=== PATIENT | female | born 1995 | race Asian ===

== ENCOUNTER 2022-12-22 03:27 | Emergency (ER) | payer OTHER ==
[~2022-12-22] VITALS: Ht 162.6 cm; Wt 80.4 kg
[2022-12-22] MEDS ORDERED: NAPR500T6 PO (03:38)
[2022-12-22] MEDS ORDERED: SERT-141 PO (03:38)
[2022-12-22] MEDS ORDERED: SYNT25TA PO (03:38)
[2022-12-22] MEDS ORDERED: AZIT-12 PO (03:38)
[2022-12-22] MEDS ORDERED: D 50CAP2 PO (03:40)
[2022-12-22] MEDS ORDERED: NORGTAB2 PO (03:40)
[2022-12-22 04:29] LABS: BASO % 0.3 % (0.0-1.0); EOS # 0.3 10^3/uL (0.0-0.5); EOS % 3.7 % (0.0-3.0); HEMATOCRIT 43.3 % (36.0-47.0); HEMOGLOBIN 13.9 g/dl (12.0-15.5); LYMPH # 1.1 10^3/uL (1.5-5.0); LYMPH % 11.6 % (24.0-44.0); MEAN CORPUSCULAR HEMOGLOBIN 26.5 pg (27.0-33.0); MEAN CORPUSCULAR HGB CONC 32.1 g/dl (32.0-36.5); MEAN CORPUSCULAR VOLUME 82.6 fl (80.0-96.0); MONO % 10.6 % (2.0-8.0); NEUTROPHILS # 6.6 10^3/uL (1.5-8.5); NEUTROPHILS % 72.8 % (36.0-66.0); PLATELET COUNT, AUTOMATED 242 10^3/uL (150-450); RED BLOOD COUNT 5.24 10^6/uL (4.00-5.40); WHITE BLOOD COUNT 9.1 10^3/uL (4.0-10.0)
[2022-12-22] MEDS ORDERED: NS 1,000 ML IV ONE (04:30)
[2022-12-22 04:38] LABS: LIPASE 32 U/L (12-53)
[2022-12-22 04:40] LABS: ALBUMIN 3.6 G/DL (3.2-5.2); ALKALINE PHOSPHATASE 54 U/L (46-116); ALT/SGPT 83 U/L (7.0-40); AST/SGOT 52 U/L (<34); BILIRUBIN,DIRECT 0.1 MG/DL (<0.4); BILIRUBIN,TOTAL 0.4 MG/DL (0.3-1.2); BLOOD UREA NITROGEN 10 MG/DL (9-23); CALCIUM LEVEL 7.9 MG/DL (8.5-10.1); CARBON DIOXIDE LEVEL 20 MMOL/L (20-31); CHLORIDE LEVEL 108 MMOL/L (98-107); CREATININE FOR GFR 0.72 MG/DL (0.55-1.30); GLOMERULAR FILTRATION RATE > 60.0 (>60); GLUCOSE, FASTING 91 MG/DL (60-100); POTASSIUM SERUM 3.3 MMOL/L (3.5-5.1); SODIUM LEVEL 136 MMOL/L (136-145); TOTAL PROTEIN 7.8 G/DL (5.7-8.2)
[2022-12-22 04:47] LABS: HCG, SERUM QUALITATIVE NEGATIVE (NEGATIVE)
[2022-12-22 06:19] VITALS: BP 126/63
[2022-12-22] MEDS ORDERED: ONDA4TAB6 PO (07:15)
[2022-12-22] MEDS ORDERED: LOMO2.5T PO (07:15)
[2022-12-22] MEDS ORDERED: ONDANSETRON 4MG 2ML VIAL IV ONE (07:15)
[2022-12-22] MEDS ORDERED: LOMOTIL 2.5MG/0.025MG TABLET PO ONE (07:15)
== END 2022-12-22 07:30 | disposition home or self-care (01) ==
LOC: M ED 03:27
DX: A08.0 Rotaviral enteritis (principal); E03.9 Hypothyroidism, unspecified
CPT/HCPCS: 80048; 80076; 81001; 83690; 84703; 85025; 87086; 87507; 93041; 96374; 99284; J2405

== ENCOUNTER 2023-01-25 23:53 | Emergency (ER) | payer OTHER ==
[~2023-01-25] VITALS: Ht 157.5 cm; Wt 83.7 kg
[~2023-01-25 23:53] MED LIST: AZIT-12 PO; D 50CAP2 PO; LOMO2.5T PO; NAPR500T6 PO; NORGTAB2 PO; ONDA4TAB6 PO; SERT-141 PO; SYNT25TA PO
[2023-01-26] MEDS ORDERED: IBUPROFEN 800 MG TAB PO ONE (01:00)
[2023-01-26 02:26] VITALS: BP 111/60
== END 2023-01-26 02:29 | disposition home or self-care (01) ==
LOC: M ED 23:53
DX: J02.0 Streptococcal pharyngitis (principal); R50.9 Fever, unspecified; R51.9 Headache, unspecified

== ENCOUNTER → 2023-05-12 | Outpatient (CLI) | payer OTHER ==
[2023-05-12 15:24] LABS: HEMATOCRIT 40.4 % (36.0-47.0); MEAN CORPUSCULAR HEMOGLOBIN 27.1 pg (27.0-33.0); MEAN CORPUSCULAR HGB CONC 32.2 g/dl (32.0-36.5); MEAN CORPUSCULAR VOLUME 84.3 fl (80.0-96.0); PLATELET COUNT, AUTOMATED 294 10^3/uL (150-450); RED BLOOD COUNT 4.79 10^6/uL (4.00-5.40); WHITE BLOOD COUNT 8.4 10^3/uL (4.0-10.0)
[2023-05-12 15:58] LABS: FREE T4 0.98 NG/DL (0.89-1.76)
[2023-05-12 15:59] LABS: THYROID STIMULATING HORMONE 1.327 uIU/ML (0.55-4.78)
[2023-05-12 16:39] LABS: HIV 1&2 SCREEN NEGATIVE (NEGATIVE)
[2023-05-12 16:47] LABS: HEPATITIS C VIRUS ABY INDEX 0.13 INDEX (<0.8)
[2023-05-12 16:51] LABS: GC DNA AMPLIFICATION NEGATIVE (NEGATIVE)
== END ==
LOC: M PLALAB 11:35
PROVIDERS: ATTEND Specialist
DX: Z34.81 Encounter for supervision of other normal pregnancy, first trimester (principal)

== ENCOUNTER → 2023-05-16 | Outpatient (REF) | payer OTHER | LOC: M PLALAB 14:43 | PROVIDERS: ATTEND Specialist | DX: Z53.9 Procedure and treatment not carried out, unspecified reason (principal); Z34.81 Encounter for supervision of other normal pregnancy, first trimester ==

== ENCOUNTER → 2023-07-06 | Outpatient (REF) | payer OTHER | LOC: M LAB REF 17:05 | PROVIDERS: ATTEND Family Medicine Addiction Medicine | DX: E03.9 Hypothyroidism, unspecified (principal) ==

== ENCOUNTER → 2023-07-13 | Outpatient (CLI) | payer OTHER | LOC: M WHC 15:14 | PROVIDERS: ATTEND Advanced Practice Midwife | DX: Z34.92 Encounter for supervision of normal pregnancy, unspecified, second trimester (principal) ==

== ENCOUNTER → 2023-09-15 | Outpatient (CLI) | payer OTHER ==
[2023-09-15 10:08] LABS: HEMATOCRIT 34.2 % (36.0-47.0); HEMOGLOBIN 11.1 g/dl (12.0-15.5); MEAN CORPUSCULAR HEMOGLOBIN 27.6 pg (27.0-33.0); MEAN CORPUSCULAR HGB CONC 32.5 g/dl (32.0-36.5); MEAN CORPUSCULAR VOLUME 85.1 fl (80.0-96.0); PLATELET COUNT, AUTOMATED 270 10^3/uL (150-450); RED BLOOD COUNT 4.02 10^6/uL (4.00-5.40); WHITE BLOOD COUNT 11.7 10^3/uL (4.0-10.0)
[2023-09-15 10:32] LABS: THYROID STIMULATING HORMONE 1.531 uIU/ML (0.55-4.78)
[2023-09-15 10:34] LABS: FREE T4 0.84 NG/DL (0.89-1.76)
== END ==
LOC: M PLALAB 07:41
PROVIDERS: ATTEND Advanced Practice Midwife
DX: O34.211 Maternal care for low transverse scar from previous cesarean delivery (principal)

== ENCOUNTER → 2023-11-06 | Outpatient (REF) | payer OTHER | LOC: M SFHCWAGY 12:56 | PROVIDERS: ATTEND Obstetrics & Gynecology | DX: Z36.85 Encounter for antenatal screening for Streptococcus B (principal); O34.211 Maternal care for low transverse scar from previous cesarean delivery ==

== ENCOUNTER 2023-11-10 06:21 | Outpatient (CLI) | payer OTHER ==
[~2023-11-10] VITALS: Ht 162.6 cm; Wt 95.0 kg
== END 2023-11-10 07:35 | disposition home or self-care (01) ==
LOC: M LDO 06:21
PROVIDERS: ATTEND Obstetrics & Gynecology
DX: O26.853 Spotting complicating pregnancy, third trimester (principal); O34.219 Maternal care for unspecified type scar from previous cesarean delivery; O99.283 Endocrine, nutritional and metabolic diseases complicating pregnancy, third trimester; E03.9 Hypothyroidism, unspecified; Z3A.36 36 weeks gestation of pregnancy
CPT/HCPCS: 59025; G0463

== ENCOUNTER 2023-12-01 08:35 | Inpatient (IN) | payer OTHER ==
[2023-12-01] VITALS (54 sets, daily range): BP systolic 81–161; BP diastolic 51–92
[~2023-12-01] VITALS: Ht 162.6 cm; Wt 99.7 kg
[2023-12-01] MEDS ORDERED: OXYTOCIN DRIP 30 UNITS in IV 1 EA IV PRN (08:55)
[2023-12-01] MEDS ORDERED: METHYLERGONOVINE MALEATE 0.2MG/ML 1ML VIAL IM PRN (08:55)
[2023-12-01] MEDS ORDERED: LIDOCAINE 1% MDV 20ML VIAL INFIL PRN (08:55)
[2023-12-01] MEDS ORDERED: TRANEXAMIC ACID INJection 1,000 MG in NS 100 ML IV PRN (08:55)
[2023-12-01] MEDS ORDERED: CARBOPROST TROMETHAMINE 250 MCG/ML AMP IM PRN (08:55)
[2023-12-01] MEDS ORDERED: PRENTAB9 PO (08:57)
[2023-12-01 09:46] LABS: HEMATOCRIT 36.8 % (36.0-47.0); HEMOGLOBIN 11.9 g/dl (12.0-15.5); MEAN CORPUSCULAR HEMOGLOBIN 26.7 pg (27.0-33.0); MEAN CORPUSCULAR HGB CONC 32.3 g/dl (32.0-36.5); MEAN CORPUSCULAR VOLUME 82.7 fl (80.0-96.0); PLATELET COUNT, AUTOMATED 235 10^3/uL (150-450); RED BLOOD COUNT 4.45 10^6/uL (4.00-5.40); WHITE BLOOD COUNT 8.9 10^3/uL (4.0-10.0)
[2023-12-01] MEDS: OXYTOCIN DRIP 30 UNITS in IV 1 EA IV SCH (10:10)
[2023-12-01] MEDS: LR 1,000 ML IV SCH (10:10)
[2023-12-01] MEDS: ONDANSETRON 4MG 2ML VIAL IV ONE (16:59)
[2023-12-01] MEDS: MORPHINE 10 MG/ML 1ML VIAL IV ONE (16:59)
[2023-12-01] MEDS ORDERED: ePHEDrine SULFATE 25 MG/5 ML(5MG/ML) SYRINGE IVP PRN (20:20)
[2023-12-01] MEDS ORDERED: NALOXONE INJ 0.4MG/1ML VIAL IV PRN (20:20)
[2023-12-01] MEDS ORDERED: EPIDURAL/PCA KEYS XX PRN (20:20)
[2023-12-01] MEDS ORDERED: diphenhydrAMINE 50MG/ML VIAL IV PRN (20:20)
[2023-12-01] MEDS ORDERED: LR 500 ML IV PRN (20:20)
[2023-12-01] MEDS ORDERED: ONDANSETRON 4MG 2ML VIAL IV PRN (20:20)
[2023-12-01] MEDS: LACTATED RINGER'S 1000 ML IV STA (20:56)
[2023-12-01] MEDS: FENTANYL/ROPIVACAINE/NACL BAG 100 ML EPIDURAL SCH (20:57)
[2023-12-02] VITALS (32 sets, daily range): BP systolic 80–141; BP diastolic 47–80; TEMP 98.7; O2SAT 97–99
[2023-12-02] MEDS ORDERED: OXYTOCIN DRIP 30 UNITS in IV 1 EA IV PRN (13:05)
[2023-12-02] MEDS ORDERED: METHYLERGONOVINE MALEATE 0.2MG/ML 1ML VIAL IM PRN (13:05)
[2023-12-02] MEDS ORDERED: TRANEXAMIC ACID INJection 1,000 MG in NS 100 ML IV PRN (13:05)
[2023-12-02] MEDS ORDERED: CARBOPROST TROMETHAMINE 250 MCG/ML AMP IM PRN (13:05)
[2023-12-02] MEDS ORDERED: LIDOCAINE 1% MDV 20ML VIAL INFIL PRN (13:05)
[2023-12-02] MEDS: AZITHROMYCIN INJ 500 MG, VIAL MATE ADAPTER 1 EACH in NS 250 ML IV ONE (13:15)
[2023-12-02] MEDS: ceFAZolin SOD 2 GM in IV 1 EA IV ONE (13:16)
[2023-12-02] MEDS: BICITRA 30ML SOLN UDC PO ONE (13:16)
[2023-12-02] MEDS ORDERED: OXYTOCIN 30UNITS IN 0.9% NaCl 500ML IV BAG As Ordered ONE (13:43)
[2023-12-02] MEDS ORDERED: ACETAMINOPHEN 1000MG 100ML IV BAG As Ordered ONE (13:43)
[2023-12-02] MEDS ORDERED: LIDOCAINE 2% W/EPINEPHRINE 20ML VIAL **PRES FREE As Ordered ONE (13:44)
[2023-12-02] MEDS ORDERED: ONDANSETRON 4MG 2ML VIAL As Ordered ONE (13:46)
[2023-12-02] MEDS ORDERED: KETOROLAC 60MG 2ML VIAL As Ordered ONE (13:46)
[2023-12-02] MEDS ORDERED: ePHEDrine SULFATE 25 MG/5 ML(5MG/ML) SYRINGE As Ordered ONE (13:47)
[2023-12-02] MEDS ORDERED: NALOXONE INJ 0.4MG/1ML VIAL IV PRN ×2 (14:00)
[2023-12-02] MEDS ORDERED: **NOTE PATIENT COMMENT** MISC XX SCH (14:00)
[2023-12-02] MEDS ORDERED: ONDANSETRON 4MG 2ML VIAL IV PRN ×3 (14:00→14:40)
[2023-12-02] MEDS: LR 1,000 ML IV SCH ×2 (14:00→14:40)
[2023-12-02] MEDS ORDERED: NALBUPHINE HCL 1MG/0.1ML (100MG/10ML) MDV IV PRN ×2 (14:00)
[2023-12-02] MEDS ORDERED: fentaNYL 100 MCG/2 ML INJECTION IV PRN (14:00)
[2023-12-02] MEDS: SLF 3 ML SYR IV SCH (14:00)
[2023-12-02] MEDS ORDERED: diphenhydrAMINE 50MG/ML VIAL IV PRN (14:00)
[2023-12-02] MEDS ORDERED: MORPHINE PRES-FREE INJ 10 MG/10 ML VIAL As Ordered ONE (14:04)
[2023-12-02 14:06] LABS: CORD GAS ABE A -3.7; CORD GAS HCO3 A 23.4 MMOL/L; CORD GAS O2 SAT A 71.4 %; CORD GAS PCO2 A 50.4 mmHg; CORD GAS PH A 7.285 UNITS; CORD GAS SBC A 20.8 MMOL/L
[2023-12-02 14:07] LABS: CORD GAS ABE V -3.7; CORD GAS HCO3 V 21.9 MMOL/L; CORD GAS PCO2 V 41.7 mmHg; CORD GAS PH V 7.339 UNITS; CORD GAS PO2 V 38.1 mmHg; CORD GAS SBC V 21.2 MMOL/L; CORD GAS TCO2 V 23.2 MMOL/L
[2023-12-02] MEDS ORDERED: MORPHINE 4 MG/ML 1ML VIAL IV PRN (14:40)
[2023-12-02] MEDS ORDERED: CALCIUM CARBONATE 500 MG CHEW U/D PO PRN (14:40)
[2023-12-02] MEDS ORDERED: ACETAMINOPHEN 500 MG TAB PO PRN (14:40)
[2023-12-02] MEDS ORDERED: RHOGAM 300MCG (1500IU) INJ IM SCH (14:40)
[2023-12-02] MEDS ORDERED: PERCOCET 5MG/325MG TAB PO PRN (14:40)
[2023-12-02] MEDS ORDERED: SIMETHICONE 80MG CHEW TAB PO PRN (14:40)
[2023-12-02] MEDS ORDERED: ANUSOL HC CREAM 30GM TOP PRN (14:40)
[2023-12-02] MEDS ORDERED: IBUP80TA PO (15:00)
[2023-12-02] MEDS ORDERED: COLA100C5 PO (15:00)
[2023-12-02] MEDS ORDERED: PERCOCET PO (15:00)
[2023-12-02] MEDS: OXYTOCIN DRIP 30 UNITS in IV 1 EA IV SCH (15:06)
[2023-12-02] MEDS ORDERED: oxyCODONE 5MG TAB As Ordered ONE (15:38)
[2023-12-02] MEDS: oxyCODONE 5MG TAB PO PRN (15:53)
[2023-12-02] MEDS: METOCLOPRAMIDE INJ 10MG/2ML VIAL IV PRN (19:34)
[2023-12-02] MEDS: DOCUSATE SODIUM 100MG CAPSULE PO SCH (20:10)
[2023-12-02] MEDS: KETOROLAC 30 MG/ML 1ML VIAL IV SCH (20:10)
[2023-12-03 02:00] VITALS: BP 109/61; O2SAT 97
[2023-12-03 06:00] VITALS: BP 120/59; O2SAT 96
[2023-12-03 07:52] LABS: HEMATOCRIT 30.4 % (36.0-47.0); RED BLOOD COUNT 3.65 10^6/uL (4.00-5.40); WHITE BLOOD COUNT 13.8 10^3/uL (4.0-10.0)
[2023-12-03 07:53] LABS: MEAN CORPUSCULAR HEMOGLOBIN 26.8 pg (27.0-33.0); MEAN CORPUSCULAR HGB CONC 32.2 g/dl (32.0-36.5); MEAN CORPUSCULAR VOLUME 83.3 fl (80.0-96.0); PLATELET COUNT, AUTOMATED 179 10^3/uL (150-450)
[2023-12-03 07:54] LABS: HEMOGLOBIN 9.8 g/dl (12.0-15.5)
[2023-12-03] MEDS: PRENATAL VITAMINS CHEWABLE TABLET PO SCH (08:33)
[2023-12-03 10:00] VITALS: BP 102/55; O2SAT 97
[2023-12-03] MEDS: PERCOCET 5MG/325MG TAB PO PRN (13:35)
[2023-12-03 14:00] VITALS: BP 108/65; O2SAT 97
[2023-12-03] MEDS: IBUPROFEN 800 MG TAB PO SCH (16:29)
[2023-12-03 17:53] VITALS: BP 131/72; O2SAT 98
[2023-12-03 22:00] VITALS: BP 137/69; O2SAT 98
[2023-12-04 02:00] VITALS: BP 119/67; O2SAT 96
[2023-12-04 06:00] VITALS: BP 128/73; O2SAT 98
[2023-12-04] MEDS: MEASLES,MUMPS,RUBELLA VACCINE INJ (MMR-II) SC.IMMUN ONE (09:00)
[2023-12-04 10:00] VITALS: BP 129/75; O2SAT 99
== END 2023-12-04 12:45 | disposition home or self-care (01) | DRG 540 ==
LOC: M LDI 08:35 → M OBS 12-02 16:00
PROVIDERS: ADMIT Advanced Practice Midwife; ATTEND Obstetrics & Gynecology
PROC: 3E033VJ Introduction of Other Hormone into Peripheral Vein, Percutaneous Approach (ICD-10-PCS; 2023-12-01)
PROC: 10D00Z1 Extraction of Products of Conception, Low, Open Approach (ICD-10-PCS; principal; 2023-12-02 12:45)
DX: O34.211 Maternal care for low transverse scar from previous cesarean delivery (principal); O66.41 Failed attempted vaginal birth after previous cesarean delivery; Z3A.39 39 weeks gestation of pregnancy; O62.0 Primary inadequate contractions; Z37.0 Single live birth; Z88.1 Allergy status to other antibiotic agents; Z79.890 Hormone replacement therapy

== ENCOUNTER → 2024-05-17 | Outpatient (REF) | payer OTHER, MEDICAID ==
[~2024-05-17] MED LIST changes: +COLA100C5 PO; +IBUP80TA PO; +ONDA-282 PO; -ONDA4TAB6 PO; +PERCOCET PO; +PRENTAB9 PO
[2024-05-23 14:23] LABS: HPV APTIMA Detected (Not Detected)
== END ==
LOC: M SFHCWAGY 13:30
PROVIDERS: ATTEND Obstetrics & Gynecology
DX: Z12.4 Encounter for screening for malignant neoplasm of cervix (principal); Z77.9 Other contact with and (suspected) exposures hazardous to health; R85.610 Atypical squamous cells of undetermined significance on cytologic smear of anus (ASC-US)

== ENCOUNTER 2024-06-03 03:55 | Emergency (ER) | payer MEDICAID, OTHER ==
[~2024-06-03] VITALS: Ht 162.6 cm; Wt 82.7 kg
[~2024-06-03 03:55] MED LIST changes: +NAPR-1405 PO; -NAPR500T6 PO
[2024-06-03 04:51] LABS: HEMOGLOBIN 12.3 g/dl (12.0-15.5); MEAN CORPUSCULAR HEMOGLOBIN 26.5 pg (27.0-33.0); MEAN CORPUSCULAR HGB CONC 31.5 g/dl (32.0-36.5); MEAN CORPUSCULAR VOLUME 83.9 fl (80.0-96.0); PLATELET COUNT, AUTOMATED 285 10^3/uL (150-450); RED BLOOD COUNT 4.65 10^6/uL (4.00-5.40)
[2024-06-03 05:09] LABS: HCG, SERUM QUANTITATIVE < 2.6 MIU/ML (<4.2)
[2024-06-03 05:10] LABS: BLOOD UREA NITROGEN 11 MG/DL (9-23); CALCIUM LEVEL 8.6 MG/DL (8.5-10.1); CARBON DIOXIDE LEVEL 25 MMOL/L (20-31); CHLORIDE LEVEL 110 MMOL/L (98-107); GLOMERULAR FILTRATION RATE > 60.0 (>60); GLUCOSE, FASTING 90 MG/DL (60-100); POTASSIUM SERUM 3.9 MMOL/L (3.5-5.1); SODIUM LEVEL 139 MMOL/L (136-145)
[2024-06-03 05:19] LABS: THYROID STIMULATING HORMONE 4.351 uIU/ML (0.55-4.78)
[2024-06-03] MEDS ORDERED: ACET-683 PO (07:32)
[2024-06-03] MEDS ORDERED: HOME MED LIST COMPLETE! XX SCH (07:35)
[2024-06-03 07:39] LABS: APPEARANCE, URINE CLOUDY (CLEAR); BACTERIA, URINE AUTO NEGATIVE (NEGATIVE); BILIRUBIN, URINE AUTO NEGATIVE (NEGATIVE); BLOOD, URINE BLOOD 2+ (NEGATIVE); COLOR, URINE RED (YELLOW); GLUCOSE, URINE (UA) AUTO 1+ mg/dL (NEGATIVE); KETONE, URINE AUTO NEGATIVE (NEGATIVE); LEUKOCYTE ESTERASE, URINE AUTO 1+ (NEGATIVE); NITRITE, URINE AUTO NEGATIVE (NEGATIVE); PROTEIN, URINE AUTO 2+ mg/dL (NEGATIVE); RBC, URINE AUTO TNTC /HPF (0-3); SPECIFIC GRAVITY URINE AUTO 1.009 (1.002-1.035); SQUAMOUS EPITHELIAL CELL UR AU 8 /HPF (0-6); UROBILINOGEN, URINE AUTO 0.2 mg/dL (0.0-2.0); WBC, URINE AUTO TNTC /HPF (0-3)
[2024-06-03 08:43] VITALS: BP 120/74; TEMP 97.2; O2SAT 100
== END 2024-06-03 08:51 | disposition home or self-care (01) ==
LOC: M ED 03:55
DX: N92.1 Excessive and frequent menstruation with irregular cycle (principal); E03.9 Hypothyroidism, unspecified; Z88.1 Allergy status to other antibiotic agents; Z79.1 Long term (current) use of non-steroidal anti-inflammatories (NSAID); Z79.899 Other long term (current) drug therapy

== ENCOUNTER → 2024-06-08 | Outpatient (CLI) | payer OTHER ==
[~2024-06-08] MED LIST changes: +ACET-683 PO
[2024-06-08 09:30] LABS: BASO # 0.1 10^3/uL (0.0-0.2); BASO % 0.9 % (0.0-1.0); EOS # 0.4 10^3/uL (0.0-0.5); EOS % 4.8 % (0.0-3.0); HEMOGLOBIN 13.3 g/dl (12.0-15.5); LYMPH # 2.2 10^3/uL (1.5-5.0); LYMPH % 26.5 % (24.0-44.0); MEAN CORPUSCULAR HEMOGLOBIN 26.7 pg (27.0-33.0); MEAN CORPUSCULAR HGB CONC 32.4 g/dl (32.0-36.5); MEAN CORPUSCULAR VOLUME 82.3 fl (80.0-96.0); MONO # 0.5 10^3/uL (0.0-0.8); MONO % 5.8 % (2.0-8.0); NEUTROPHILS # 4.9 10^3/uL (1.5-8.5); NEUTROPHILS % 60.6 % (36.0-66.0); PLATELET COUNT, AUTOMATED 324 10^3/uL (150-450); RED BLOOD COUNT 4.98 10^6/uL (4.00-5.40); WHITE BLOOD COUNT 8.1 10^3/uL (4.0-10.0)
[2024-06-08 09:44] LABS: HEMOGLOBIN A1c 5.6 % (4.0-6.0)
[2024-06-08 09:47] LABS: TOTAL IRON BINDING CAPACITY 381 UG/DL (250-425)
[2024-06-08 09:48] LABS: ALBUMIN 3.8 G/DL (3.2-5.2); ALKALINE PHOSPHATASE 87 U/L (46-116); ALT/SGPT 23 U/L (7.0-40); AST/SGOT 12 U/L (<34); BILIRUBIN,TOTAL 0.3 MG/DL (0.3-1.2); BLOOD UREA NITROGEN 16 MG/DL (9-23); CALCIUM LEVEL 9.2 MG/DL (8.5-10.1); CARBON DIOXIDE LEVEL 26 MMOL/L (20-31); CHLORIDE LEVEL 110 MMOL/L (98-107); CHOLESTEROL LEVEL 179 MG/DL (<200); CHOLESTEROL RISK RATIO 3.08 (<5); CREATININE FOR GFR 0.75 MG/DL (0.55-1.30); GLOMERULAR FILTRATION RATE > 60.0 (>60); GLUCOSE, FASTING 82 MG/DL (60-100); IRON (FE) 50 UG/DL (50-170); LDL CHOLESTEROL 111.2 MG/DL (<100); MAGNESIUM LEVEL 2.2 MG/DL (1.8-2.4); PERCENT SATURATION 13.1 % (13.2-45.0); POTASSIUM SERUM 4.5 MMOL/L (3.5-5.1); SODIUM LEVEL 139 MMOL/L (136-145); TOTAL PROTEIN 7.8 G/DL (5.7-8.2); TRIGLYCERIDES LEVEL 49 MG/DL (<150)
[2024-06-08 09:51] LABS: THYROID STIMULATING HORMONE 1.853 uIU/ML (0.55-4.78); TOTAL 25(OH) VITAMIN D 22.2 NG/ML (20.0-100.0)
== END ==
LOC: M LAB 08:25
PROVIDERS: ATTEND Nurse Practitioner Family
DX: N92.6 Irregular menstruation, unspecified (principal); E66.9 Obesity, unspecified; E55.9 Vitamin D deficiency, unspecified

== ENCOUNTER → 2024-07-10 | Outpatient (REF) | payer OTHER | LOC: M SFHCWAGY 13:55 | PROVIDERS: ATTEND Obstetrics & Gynecology | DX: R87.610 Atypical squamous cells of undetermined significance on cytologic smear of cervix (ASC-US) (principal) ==

== ENCOUNTER 2024-09-06 11:05 | Emergency (ER) | payer OTHER ==
[~2024-09-06] VITALS: Ht 162.6 cm; Wt 85.9 kg
[2024-09-06 13:25] LABS: BASO # 0.1 10^3/uL (0.0-0.2); BASO % 0.8 % (0.0-1.0); EOS # 0.2 10^3/uL (0.0-0.5); HEMATOCRIT 41.9 % (36.0-47.0); HEMOGLOBIN 13.6 g/dl (12.0-15.5); LYMPH # 2.1 10^3/uL (1.5-5.0); LYMPH % 27.6 % (24.0-44.0); MEAN CORPUSCULAR HEMOGLOBIN 26.9 pg (27.0-33.0); MEAN CORPUSCULAR HGB CONC 32.5 g/dl (32.0-36.5); MEAN CORPUSCULAR VOLUME 82.8 fl (80.0-96.0); MONO # 0.6 10^3/uL (0.0-0.8); MONO % 7.2 % (2.0-8.0); NEUTROPHILS # 4.7 10^3/uL (1.5-8.5); NEUTROPHILS % 60.6 % (36.0-66.0); PLATELET COUNT, AUTOMATED 269 10^3/uL (150-450); RED BLOOD COUNT 5.06 10^6/uL (4.00-5.40); WHITE BLOOD COUNT 7.7 10^3/uL (4.0-10.0)
[2024-09-06 13:37] LABS: CK-MB VALUE MASS < 1.0 NG/ML (<3.6)
[2024-09-06 13:39] LABS: ALBUMIN 4.1 G/DL (3.2-5.2); ALKALINE PHOSPHATASE 80 U/L (35-104); ALT/SGPT 24 U/L (7.0-40); AST/SGOT 16 U/L (<34); BILIRUBIN,DIRECT < 0.1 MG/DL (<0.4); BILIRUBIN,TOTAL 0.3 MG/DL (0.3-1.2); CPK CREATINE PHOSPHOKINASE 72 U/L (34-145); MAGNESIUM LEVEL 1.8 MG/DL (1.8-2.4); MB/CK RELATIVE INDEX 1.38 (< OR =4); TOTAL PROTEIN 7.9 G/DL (5.7-8.2)
[2024-09-06 13:43] LABS: HCG, SERUM QUALITATIVE NEGATIVE (NEGATIVE)
[2024-09-06 17:57] VITALS: BP 127/89; TEMP 97.7; O2SAT 100
== END 2024-09-06 18:07 | disposition home or self-care (01) ==
LOC: M ED 11:05
DX: R07.9 Chest pain, unspecified (principal); E03.9 Hypothyroidism, unspecified; R00.1 Bradycardia, unspecified; Z79.890 Hormone replacement therapy

== ENCOUNTER 2024-09-25 08:11 | Day surgery (SDC) | payer OTHER ==
[~2024-09-25] VITALS: Ht 162.6 cm; Wt 87.1 kg
[2024-09-25 08:36] LABS: HEMATOCRIT 42.1 % (36.0-47.0); HEMOGLOBIN 13.5 g/dl (12.0-15.5); MEAN CORPUSCULAR HEMOGLOBIN 26.8 pg (27.0-33.0); MEAN CORPUSCULAR HGB CONC 32.1 g/dl (32.0-36.5); MEAN CORPUSCULAR VOLUME 83.7 fl (80.0-96.0); PLATELET COUNT, AUTOMATED 287 10^3/uL (150-450); RED BLOOD COUNT 5.03 10^6/uL (4.00-5.40); WHITE BLOOD COUNT 8.3 10^3/uL (4.0-10.0)
[2024-09-25] MEDS ORDERED: NS (Normal Saline) 0.9% 1,000 ML IV SCH (08:50)
[2024-09-25] MEDS ORDERED: MIDAZOLAM INJ 2MG/2ML VIAL As Ordered ONE (10:11)
[2024-09-25] MEDS ORDERED: LIDOCAINE 2% 100MG/5ML SDV (FOR ANES.) As Ordered ONE (10:11)
[2024-09-25] MEDS ORDERED: propofoL 200 MG/20 ML VIAL As Ordered ONE (10:11)
[2024-09-25] MEDS ORDERED: KETOROLAC 60MG 2ML VIAL As Ordered ONE (10:11)
[2024-09-25] MEDS ORDERED: ONDANSETRON 4MG 2ML VIAL As Ordered ONE (10:11)
[2024-09-25] MEDS ORDERED: fentaNYL 100 MCG/2 ML INJECTION As Ordered ONE (10:12)
[2024-09-25] MEDS ORDERED: ePHEDrine SULFATE 25 MG/5 ML(5MG/ML) SYRINGE As Ordered ONE (10:21)
[2024-09-25] MEDS: IODINE STRONG SOLN 15ML BTL As Ordered ONE (11:40)
[2024-09-25] MEDS: LIDOCAINE W/EPINEPHRINE 1% 20ML VIAL As Ordered ONE (11:40)
[2024-09-25 12:40] VITALS: BP 122/68; TEMP 97; O2SAT 100
== END 2024-09-25 12:45 | disposition home or self-care (01) ==
LOC: M SDC 08:11
PROVIDERS: ATTEND Obstetrics & Gynecology
DX: D06.9 Carcinoma in situ of cervix, unspecified (principal); E03.9 Hypothyroidism, unspecified; Z79.899 Other long term (current) drug therapy; Z88.1 Allergy status to other antibiotic agents
CPT/HCPCS: 36415; 57522; 81025; 85027; 86850; 86900; 86901; 88307; J1885; J2250; J2405; J3010

== ENCOUNTER 2025-01-13 07:19 | Emergency (ER) | payer OTHER ==
[~2025-01-13] VITALS: Ht 162.6 cm; Wt 90.3 kg
[2025-01-13] MEDS ORDERED: MEDR4PAK PO (09:17)
[2025-01-13 09:30] VITALS: BP 134/79; TEMP 98.1; O2SAT 100
== END 2025-01-13 09:33 | disposition home or self-care (01) ==
LOC: M ED 07:19
DX: S39.012A Strain of muscle, fascia and tendon of lower back, initial encounter (principal); M54.31 Sciatica, right side; X50.0XXA Overexertion from strenuous movement or load, initial encounter; Y92.89 Other specified places as the place of occurrence of the external cause; Y93.89 Activity, other specified; Y99.1 Military activity